=== PATIENT | female | born 1990 ===

== ENCOUNTER → 2018-09-12 21:15 | Outpatient (REF) | payer OTHER, SELFPAY ==
[2018-09-15 15:33] LABS: RPR Screen Nonreactive (Nonreactive)
== END ==
LOC: LAB 21:15
PROVIDERS: Visit Provider Family Medicine
DX: Z11.1 Encounter for screening for respiratory tuberculosis (principal); Z11.3 Encounter for screening for infections with a predominantly sexual mode of transmission
CPT/HCPCS: 36415; 86592; 87591